=== PATIENT | female | born 1990 | race Caucasian/White ===

== ENCOUNTER 2025-01-09 11:11 | Emergency (ER) | payer BC, SELFPAY ==
[2025-01-09 11:12] VITALS: BP 130/79
--- NOTE | 2025-01-09 11:47 | ED.GENMED ---
History of Present Illness
General
Chief Complaint: DVT/Possible Blood Clot
Source: patient
Exam Limitations: none
Time Seen by Provider: 01/09/25 11:35
History of Present Illness
History of Present Illness:
34-year-old female presents complaining of painful lump to the right medial calf
That started several days ago. 1 month ago she had a radiofrequency ablation treatment to her saphenous vein in [place]. She drove up here from [place] to [facility]. The travel was about 3 and 4:30 hours. She denies chest pain or shortness of
breath. No prior history of DVT or PE. No fever. No injury. No other complaints
Phy Exam
Physical Exam
Physical Exam:
General: Well-appearing female no acute respiratory distress
HEENT: Normocephalic atraumatic
Musculoskeletal exam: Right calf slightly tender medially. Skin is intact no erythema
Vascular: 2+ DP pulse right foot
Course
Orders/Labs/Results
Orders:
Orders
01/09/25 11:16
US Periph Venous LOWER Ext RT Urgent
Comment:
Reason For Exam: pain, swelling
Vital Signs
Initial and Last Documented VS:
Initial Vital Signs
Temp Pulse Resp BP Pulse Ox
98.7 F 98 16 130/79 99
01/09/25 11:12 01/09/25 11:12 01/09/25 11:12 01/09/25 11:12 01/09/25 11:12
Last Documented Vital Signs
Temp Pulse Resp BP Pulse Ox
98.7 F 98 16 130/79 99
01/09/25 11:12 01/09/25 11:12 01/09/25 11:12 01/09/25 11:12 01/09/25 11:12
*Critical Care Note
Total Time (30-74mins, 75-104mins- exclusive of procedures): Not Applicable
Update Note
Update Note:
Right calf pain. Consider phlebitis versus DVT. Ultrasound pending
Ultrasound demonstrates no DVT. There is a clot in a superficial branch vein. Recommend warm compresses and NSAIDs. No need for anticoagulants. Stable for discharge
ED Attending Note
-
Portions of this chart may have been created with voice recognition software.� Occasional wrong word or��sound alike� substitutions may have occurred due to the inherent limitations of voice recognition software.
Discharge Plan
Departure
Patient Disposition: Home (Routine Discharge)
Date of Disposition: 01/09/25
Time of Disposition: 13:25
Patient with high blood pressure during this ER visit?: No
Discharge Problem:
Phlebitis
Referrals:
PRIVATE,PHYSICIAN [Family Provider] -
Activity Restrictions/Additional Instructions:
As discussed there is no deep vein thrombosis in your leg. There is a superficial clot. This does not require blood thinners. Use warm compresses to the area and nonsteroidal anti-inflammatories for pain. Return if worse otherwise follow-up with
your doctor
Interventions
Interventions:
*Risk Screen - Suicide Last Done: 01/09/25 11:12
*General Assessment Last Done: 01/09/25 11:12
*Neglect/Abuse Screening Last Done: 01/09/25 11:28
*ED COVID-19 Vaccine History Last Done: 01/09/25 11:12
ED- Cardiac Assessment Last Done: 01/09/25 11:28
ED- Pulmonary Assessment Last Done: 01/09/25 11:28
ED-Peripheral Vascular Assessment Last Done: 01/09/25 11:28
ED-Skin Assessment Last Done: 01/09/25 11:28
Discharge Date and Time
Print Language: [id number]
[2025-01-09 13:44] VITALS: BP 123/62
== END 2025-01-09 13:47 | disposition home or self-care (01) ==
LOC: EMR 11:11
PROVIDERS: EMERGENCY PHYSICIAN Emergency Medicine
DX: I80.02 Phlebitis and thrombophlebitis of superficial vessels of left lower extremity (principal)
CPT/HCPCS: 99284; 93971